=== PATIENT | male | born 1985 | race Caucasian/White ===

== ENCOUNTER 2016-12-09 13:40 | Emergency (ER) | payer OTHER ==
--- NOTE | ~2016-12-09 | EKG ---
PATIENT: ROZINA MENDEZ UNIT #: [id number] Ventricular Rate: 75 BPM Atrial Rate: 75 BPM P-R Interval: 134 ms QRS Duration: 102 ms Q-T Interval: 380 ms QTC Calculation(Bezet): 424 ms P [place]: 54 degrees Calculated R [place]: 75 degrees Calculated T [place]: 61 degrees Diagnosis Line: Normal sinus rhythm Diagnosis Line: Normal ECG Diagnosis Line: No previous ECGs available Diagnosis Line: Confirmed by KAREEM JAEGER MD ([id number]) on 12/11/2016 Diagnosis Line: 5:36:20 AM INTERPRETING MD: HEIDE GU
[2016-12-09 15:23] LABS: ALBUMIN SERUM 4.1 g/dL (3.5-5.0); ALKALINE PHOSPHATASE 70 U/L (32-92); ALT (SGPT) 54 U/L (10-40); AST (SGOT) 61 U/L (10-42); BILIRUBIN, DIRECT 0.2 mg/dL (0.0-0.2); BILIRUBIN,INDIRECT 0.5 mg/dL (0.0-0.9); BILIRUBIN,TOTAL 0.7 mg/dL (0.2-2.0); BLOOD UREA NITROGEN 17 mg/dL (9-23); BUN/CREATININE RATIO 18.88; CALCIUM SERUM 9.2 mg/dL (8.4-10.2); CARBON DIOXIDE 32 mmol/L (22-31); CHLORIDE 104 mmol/L (100-111); CREATININE SERUM 0.9 mg/dL (0.6-1.4); GLOM FILT RATE Estimated 113.4 mL/min (>60); GLUCOSE FASTING 87 mg/dL (70-110); POTASSIUM 4.4 mmol/L (3.5-5.1); PROTEIN TOTAL SERUM 7.7 g/dL (6.0-8.3); SALICYLATE <4.0 mg/dL; SODIUM 140 mmol/L (135-145)
[2016-12-09 15:27] LABS: ACETAMINOPHEN <10 ug/mL; ALCOHOL BLOOD <5 mg/dL (0)
[2016-12-09 17:05] LABS: AMPHETAMINE POS (NEG); BARBITURATES NEG (NEG); BENZODIAZEPINES NEG (NEG); COCAINE NEG (NEG); MARIJUANA POS (NEG); OPIATES NEG (NEG); TRICYCLIC ANTIDEPRESSANTS NEG (NEG); U METHADONE NEG (NEG)
== END 2016-12-09 23:00 ==
LOC: CED 13:40
PROVIDERS: Emergency Medicine
DX: T42.8X2A Poisoning by antiparkinsonism drugs and other central muscle-tone depressants, intentional self-harm, initial encounter (principal); F32.9 Major depressive disorder, single episode, unspecified; F17.210 Nicotine dependence, cigarettes, uncomplicated; Z88.0 Allergy status to penicillin
CPT/HCPCS: 36415; 80048; 80076; 80307; 93005; 99285; G0480

== ENCOUNTER 2016-12-09 19:00 | Inpatient (IN) | payer MEDICAID ==
--- NOTE | ~2016-12-09 | HP ---
Unit #: [id number] #: [id number] Patient: JHONATAN MENDEZ [id number] [facility] [address] [place] [address] [id number] MR#: [id number] NAME: JHONATAN MENDEZ. ROOM: 16 Age: 31 Sex: M Admission Date: 12/09/2016 : 1985 Attending Physician: Lamonte Callahan M.D. Admitting Physician: Lamonte Clalahan M.D. Primary Care Physician: Primary Care Physician No HISTORY AND PHYSICAL HISTORY OF PRESENT ILLNESS Jhonatan is a 31 year old admitted to [address] [place] [address] with depression after an alleged suicide attempt with an overdose of "pills". He was seen in a local emergency room and when medically stable transferred to [facility] for psychiatric care. PAST MEDICAL HISTORY Nothing significant PAST SURGICAL HISTORY Nothing reported. ALLERGIES Penicillin. SOCIAL HISTORY Smokes three packs per day. Drinks a half pint of vodka on a weekly basis. Admits to using marijuana frequently. FAMILY HISTORY Medically noncontributory. REVIEW OF SYSTEMS CONSTITUTIONAL: No fever or chills. HEENT: Denies any sore throat, ear pain or runny nose. CARDIOVASCULAR: Denies chest pain, irregular heart rhythm or palpitations. CHEST: Denies shortness of breath or cough. No hemoptysis. GASTROINTESTINAL: Denies nausea, vomiting, diarrhea or chronic constipation. ENDOCRINE: Denies history of increased thirst or urination. No recent significant weight loss or gain. GENITOURINARY: Denies dysuria, frequency, or hematuria. SKIN: Denies any rashes. HEMATOLOGIC: Denies history of increased bleeding or bruising. MUSCULOSKELETAL: Denies any hot, swollen joints. No generalized muscle pain. NEUROLOGIC: Denies problems with vision or speech. No frequent, severe headaches. No numbness, tingling or weakness in any extremities. Denies loss of bladder or bowel control. CURRENT MEDICATIONS 1. Celexa 20 mg q day Unit #: [id number] #: [id number] Patient: JHONATAN MENDEZ 2. Desyrel 50 mg q.h.s. 3. Vistaril 25 mg b.i.d. 4. Nicotine patch 21 mg q day 5. Trazodone 75 mg q.h.s. p.r.n. 6. Milk of Magnesia p.r.n. 7. Maalox p.r.n. 8. Tylenol p.r.n. PHYSICAL EXAMINATION GENERAL: Alert, well-nourished, in no apparent distress. VITAL SIGNS: Blood pressure 120/70, heart rate 64, respirations 16, temperature 98.6. WEIGHT: 146 pounds. HEIGHT: 5'11". SKIN: Warm and dry without rash or lesion. HEENT: Normocephalic. TMs not viewed. Oral and nasal passages clear. Conjunctivae clear. Pupils equal, round and reactive to light and accommodation. Extraocular movements intact. NECK: Supple without lymphadenopathy or thyromegaly. HEART: Regular rate and rhythm without murmur. LUNGS: Clear. ABDOMEN: Soft, nontender. : Not done. EXTREMITIES: No evidence of cyanosis, clubbing or edema. Moves all extremities without focal deficit. NEUROLOGICAL: Grossly within normal limits. Cranial Nerves: II: Visual berry are intact. III, IV AND : Extraocular movements are intact. Pupils are equal, round and reactive to light. V: Facial sensation is grossly normal. VII: Facial movements and expression are normal. VIII: Auditory acuity grossly intact. IX, X: Uvula is midline. Phonation is normal. XI: Patient shrugs shoulders and turns head normally. XII: Tongue protrudes in the midline. Sensory and Motor Function: Sensory and motor sensation is grossly normal. Motor: moves all extremities well. Coordination: Gait is normal. Deep Tendon Reflexes: Intact. IMPRESSION Psychiatric admission RECOMMENDATIONS PSYCHIATRIC: Per psychiatrist. MEDICAL: I see no contraindications to participating in facility's activities. MEDICAL PROGNOSIS Good. MEDICAL CONDITION Stable. Dictated by... Anita Renae P.A.-C. for Unit #: [id number] #: [id number] Patient: JHONATAN MENDEZ Genoveva Senior/princess TD: 12/10/2016 21:48 JOB #: [id number] HISTORY AND PHYSICAL Page 1 of 1 X Anita Renae HISTORY AND PHYSICAL
--- NOTE | ~2016-12-09 | PA ---
Unit #: [id number] #: [id number] Patient: JHONATAN MENDEZ [id number] [facility] [address] [place] [address] [id number] I MR#: [id number] NAME: JHONATAN MENDEZ. ROOM: 16 Age: 31 Sex: M Admission Date: 12/09/2016 : 1985 Date of Assessment: Attending Physician: Lamonte Callahan M.D. Admitting Physician: Lamonte Callahan M.D. Primary Care Physician: Primary Care Physician No PSYCHIATRIC ASSESSMENT INFORMANTS The patient reliability, fair; chart reliability, good. CHIEF COMPLAINT Depression and suicidal ideation. HISTORY OF PRESENT ILLNESS Mr. Jhonatan Mendez is a 31-year-old male, presented after taking overdose of pills and tried to kill himself. The patient reported depressive symptoms stated that he broke up and miserable patient, reported feeling sad, depressed, feeling of hopelessness. The patient reports poor support system, reported strained relationship with mother of daughters and upset because cannot see his daughter. The patient reports that he is tired of feeling like this, never wanted to be here on the earth. The patient currently lives with his mother. The patient reported last girlfriend in 04/2015 due to overdose. The patient reported feeling of hopelessness, worthlessness, feeling depressed in the last 3 years, worsening lately, poor sleep. The patient also reported having problem with anger and temper. The patient denied any history of any abuse. Denied any legal charges, but in the past charges for burglary and theft. The patient currently on no psychotropic medication. Family history is unremarkable. The patient reported history of tobacco use, age of onset 10; alcohol, age of onset 6; marijuana, age of onset 12; opioid, age of onset 29; amphetamine, age of onset 26. The patient denied any history of blackout, HIV, hepatitis, withdrawal symptom, but history of IV drug use. The patient needed inpatient admission at this time for psychiatric stabilization. PAST PSYCHIATRIC HISTORY Unremarkable for any history of previous treatment. FAMILY HISTORY AND SOCIAL HISTORY Unremarkable. Poor support system. Lives with his mother. No history of abuse. MEDICAL HISTORY Unremarkable for any chronic medical illness. Musculoskeletal; muscle strength and tone, no atrophy or abnormal movement. Gait normal. MEDICATION HISTORY None. ALLERGIES Unit #: [id number] #: [id number] Patient: JHONATAN MENDEZ No known drug allergies. SUBSTANCE ABUSE HISTORY Please see above. REVIEW OF SYSTEMS HEENT: Eyes, clear. Ears, nose, mouth, and throat; clear. CARDIOVASCULAR: Unremarkable. RESPIRATORY: Unremarkable. GI: Unremarkable. : Unremarkable. SKIN: Unremarkable. LYMPH NODE: Unremarkable. NEUROLOGIC: Unremarkable. ENDOCRINE: Unremarkable. HEMATOLOGIC: Unremarkable. ALLERGIC/IMMUNOLOGIC: Unremarkable. MUSCULOSKELETAL: Muscle strength and tone, no atrophy or abnormal movement. Gait normal. MENTAL STATUS EXAMINATION CONSTITUTIONAL: Measurement of vital signs; temperature 97.3, pulse 65, respirations 16, oxygen saturation 98, blood pressure 120/69, height 5 feet 11 inches, weight 146 pounds. GENERAL APPEARANCE: The patient dressed casually. The patient did not show any facial deformity. MUSCULOSKELETAL: Please see above. PSYCHIATRIC EXAMINATION Description of speech; regular rate, normal volume, normal articulation, coherent. Description of thought process, goal directed. Description of association, intact. Description of abnormal psychotic thinking; the patient denied any hallucination or delusions, but mood lability, suicidal ideation. Description of the patient's judgment, concerning everyday activity, poor. Social situation, poor. Concerning psychiatric condition, poor. Complete mental status examination; oriented in time, place, and person. Recent and remote memory, fair. Attention span and concentration, fair. Language, able to name object and repeat phrases. Fund of knowledge, aware of current event and passive vocabulary intact. Mood and affect, sad and dysphoric. Insight and judgment, fair to poor. ASSETS AND LIABILITIES Assets; the patient is articulate and able to take care of his ADL. Liability; history of substance abuse and depression. ADMITTING DIAGNOSES Psychiatric: Major depressive disorder, recurrent, severe, F33.2; cannabis abuse, moderate, F12.20. Secondary diagnosis: Deferred. Medical diagnosis: None. Stressors: Psychosocial stressors. PSYCHIATRIC PLAN AND TREATMENT GOAL AND DISCHARGE PLAN Unit #: [id number] #: [id number] Patient: JHONATAN MENDEZ 1. Advised to admit the patient on the inpatient unit. Provide safe, supportive, and structured environment. 2. Ordered labs; CBC, CMP, UA, and UDS. 3. Precaution for self-harm. The patient to start with Celexa 20 mg daily for depression, Desyrel 50 mg at bedtime for sleep, and Vistaril 25 mg b.i.d. for anxiety. If needed, consider further adjustment of medication. 4. Treatment goal; to attain euthymic mood, gain insight into his problem, and learn coping skills. 5. Discharge plan; plan to stabilize the patient and consider followup in outpatient program. ESTIMATED LENGTH OF STAY 3 to 5 days. Dictated by... Genoveva Rapp/pino TD: 12/10/2016 19:12 JOB #: [id number] PSYCHIATRIC ASSESSMENT Page 1 of 1 X Lamonte Callahan MD X PSYCHIATRIC ASSESSMENT
--- NOTE | ~2016-12-09 | DS ---
Unit #: [id number] #: [id number] Patient: ROZINA MENDEZ [id number] [facility] [address] [place] [address] [id number] MR#: [id number] NAME: ROZINA MENDEZ. ROOM: [facility] Age: 31 Sex: M Admission Date: 12/09/2016 : 1985 Discharge Date: 12/11/2016 Attending Physician: Lamonte Callahan M.D. Primary Care Physician: Primary Care Physician No DISCHARGE SUMMARY REASON FOR ADMISSION Depression, suicidal ideation. DIAGNOSTIC STUDIES Laboratory data is unremarkable except AST 61, ALT is 54. Urine drug screen positive for amphetamine and marijuana. HOSPITAL COURSE The patient was admitted to inpatient unit on December 09 and discharged on December 11, 2016. The patient was treated on the inpatient unit with expressive therapy, medication management, psychoeducation, psychotherapy, structured milieu, the patient was responsive to treatment and subsequently the patient was discharged with the plan to follow up in outpatient program. DISCHARGE DIAGNOSES [place] I Major depressive disorder, recurrent, severe, F33.2. Cannabis abuse, moderate, F12.20. Amphetamine use disorder, [id number], F15.20. [place] II Deferred. [place] III None. [place] IV Psychosocial stressors. 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 DISCHARGE MEDICATIONS 1. Desyrel 50 mg at bedtime for sleep 2. Celexa 20 mg daily for depression 3. Vistaril 25 mg three times a day for anxiety CONDITION AT DISCHARGE The patient is pleasant, cooperative, without any psychotic symptoms or any suicidal ideation. PROGNOSIS Guarded. DIET AND ACTIVITY As tolerated. Unit #: [id number] #: [id number] Patient: ROZINA MENDEZ Dictated by... Genoveva Rapp/rizwan TD: 12/12/2016 09:38 JOB #: [id number] DISCHARGE SUMMARY Page 1 of 1 X Lamonte Callahan MD X DISCHARGE SUMMARY
== END 2016-12-11 11:25 | DRG 885 ==
LOC: P1S 23:43
DX: F33.2 Major depressive disorder, recurrent severe without psychotic features (principal); F15.20 Other stimulant dependence, uncomplicated; F12.20 Cannabis dependence, uncomplicated; F17.210 Nicotine dependence, cigarettes, uncomplicated; Z88.0 Allergy status to penicillin

== ENCOUNTER 2017-01-05 15:51 | Emergency (ER) | payer OTHER ==
--- NOTE | ~2017-01-05 | US115 ---
[facility]. [facility] A Service of [facility] RADIOLOGY TEXT RESULTS PATIENT: ROZINA MENDEZ LOCATION: SED : 85 UNIT #: [id number] AGE: [address]: NILESH MENARD SEX: M ORDER DR: [id number] [place] [id number] MR#: [id number] Acc #: [id number] NAME: ROZINA MENDEZ. : 1985 SEX: M STUDY DATE/TIME: 01/05/2017 17:32 UNIT: SED ROOM: STUDY DESCRIPTION: US Scrotum and Contents Attending Physician: Nilesh Menard Ordering Physician: Physician Non-Staff Primary Care Physician: Primary Care Physician No MEDICAL IMAGING REPORT This report is preliminary unless electronic signature is present. EXAM Scrotal ultrasound HISTORY Scrotal swelling times 4-5 days FINDINGS Real-time examination demonstrates the testicles to be of normal size shape and echogenicity. Small right epididymal cyst in the head of the epididymis measuring 3.4 mm. No hydrocele. Normal flow. IMPRESSION Small right epididymal cyst. Otherwise normal testicular ultrasound. Dictated by... Jake Suarez M.D. THIS IS AN ELECTRONICALLY VERIFIED REPORT Jake Suarez M.D. at 01/08/2017 1:33 PM MCKENZIE/michael TD: 01/06/2017 01:19 JOB #: [id number] MEDICAL IMAGING REPORT Page 1 of 1
[2017-01-05 16:16] LABS: URINE SOURCE CLEAN CATCH
[2017-01-05 16:19] LABS: URINE APPEARANCE HAZY; URINE BLOOD TRACE-INTACT (NEG); URINE COLOR YELLOW; URINE GLUCOSE NEG (NORM); URINE KETONE TRACE (NEG); URINE LEUKOCYTE ESTERASE 3+ (NEG); URINE NITRATE NEG (NEG); URINE PH 6.5 (5-8); URINE PROTEIN TRACE (NEG)
[2017-01-05 16:20] LABS: MICRO INDICATED? YES; URINE BILIRUBIN NEG (NEG)
[2017-01-05 16:28] LABS: CULTURE INDICATED? YES; URINE BACTERIA 1+ (NEG); URINE MUCUS PRESENT; URINE SQUAMOUS EPITHELIAL CELL OCCAS /[HPF]; URINE WBC INNUM /[HPF] (0-5)
[2017-01-09 16:39] LABS: CHLAMYDIA TRACH Detected (Not Detected); N GONOR Detected (Not Detected)
== END 2017-01-05 19:02 | disposition home or self-care (01) ==
LOC: SED 15:51
PROVIDERS: Nurse Practitioner
DX: N50.3 Cyst of epididymis (principal); R36.9 Urethral discharge, unspecified; A64 Unspecified sexually transmitted disease; F17.210 Nicotine dependence, cigarettes, uncomplicated; Z88.0 Allergy status to penicillin
CPT/HCPCS: 76870; 81003; 87086; 87491; 87591; 96372; 99284; J0696